=== PATIENT | male | born 1935 | race Two or more races ===

== ENCOUNTER 2016-09-30 01:28 | Inpatient (IN) | payer MEDICARE, MEDICAID ==
[~2016-09-30] VITALS: Ht 175.3 cm; Wt 54.4 kg
[2016-09-30 02:15] VITALS: BP 114/70
[2016-09-30 02:44] VITALS: BP 114/70
[2016-09-30] MEDS ORDERED: ACETAMINOPHEN 325 MG TABLET PO PRN (03:30)
[2016-09-30] MEDS ORDERED: MAG HYDROX/AL HYDROX/SIMETH 30 ML UDC PO PRN (03:30)
[2016-09-30] MEDS ORDERED: LORAZEPAM 0.5 MG TABLET PO PRN (03:30)
[2016-09-30] MEDS ORDERED: MAGNESIUM HYDROXIDE 30 ML UDC PO PRN (03:30)
[2016-09-30] MEDS ORDERED: B CO1CAP6 PO (04:29)
[2016-09-30] MEDS ORDERED: CYAN-3 IJ (04:33)
[2016-09-30] MEDS ORDERED: DOXA4TAB2 PO (04:34)
[2016-09-30] MEDS ORDERED: ERGO500047 PO (04:35)
[2016-09-30] MEDS ORDERED: FINA5TAB4 PO (04:36)
[2016-09-30] MEDS ORDERED: LORA10CA PO (04:37)
[2016-09-30] MEDS ORDERED: MESA0.37 PO (04:38)
[2016-09-30] MEDS ORDERED: MESA10005 RC (04:39)
[2016-09-30] MEDS ORDERED: OXYB10TA4 PO (04:40)
[2016-09-30] MEDS ORDERED: PHEN-704 PO (04:41)
[2016-09-30] MEDS ORDERED: SIME250C PO (04:43)
[2016-09-30 08:00] VITALS: BP 120/60
[2016-09-30] MEDS: ERGOCALCIFEROL (VITAMIN D 2) 50,000 UNIT CAPSULE PO SCH (14:00)
[2016-09-30 16:13] VITALS: BP 100/69
[2016-09-30] MEDS: SIMETHICONE 80 MG TAB.CHEW PO SCH (17:00)
[2016-09-30] MEDS ORDERED: MESALAMINE RC SCH ×2 (18:00)
[2016-09-30] MEDS: CYANOCOBALAMIN 1,000 MCG/ML VIAL IM SCH (18:30)
[2016-09-30 20:00] VITALS: BP 93/57
[2016-09-30] MEDS: OXYBUTYNIN CHLORIDE ER 5 MG TAB PO SCH (21:27)
[2016-09-30] MEDS ORDERED: MIRTAZAPINE 15 MG TABLET PO SCH (22:00)
[2016-10-01 07:59] LABS: BASOPHILS % (AUTO) 0.4 % (0.0-2.0); DIFF TOTAL % 100 %; EOSINOPHILS # (AUTO) 0.3 /CMM (0.0-0.7); EOSINOPHILS % (AUTO) 3.5 % (0.0-6.0); HEMATOCRIT 41 % (39-51); HEMOGLOBIN 13.6 g/dL (13.5-17.5); LYMPHOCYTES # (AUTO) 1.4 /CMM (0.8-4.8); LYMPHOCYTES % (AUTO) 16.7 % (20.0-44.0); MEAN CORPUSCULAR HEMOGLOBIN 31 PG (26.0-33.0); MEAN CORPUSCULAR HGB CONC 33 g/dl (31.0-36.0); MEAN CORPUSCULAR VOLUME 94 fL (80-96); MONOCYTES # (AUTO) 0.8 /CMM (0.1-1.30); MONOCYTES % (AUTO) 8.9 % (2.0-12.0); NEUTROPHILS % (AUTO) 70.5 % (43.0-81.0); PLATELET COUNT (AUTO) 259 /CMM (150-450); RED BLOOD CELL COUNT(AUTO) 4.37 MIL/uL (4.5-6.0); WHITE BLOOD COUNT (AUTO) 8.5 K/uL (4.3-11.0)
[2016-10-01 08:00] VITALS: BP 100/65
[2016-10-01 08:22] LABS: ALBUMIN 2.6 g/dL (3.4-5.0); BILIRUBIN,TOTAL 1.1 mg/dL (0.2-1.0); CALCIUM, SERUM 8.5 mg/dL (8.5-10.1); CREATININE 0.9 mg/dL (0.6-1.3); PHOSPHORUS 3.2 mg/dL (2.5-4.9); TOTAL PROTEIN, SERUM 5.5 g/dL (6.4-8.2)
[2016-10-01] MEDS: FINASTERIDE (5 MG) 5 MG TABLET PO SCH (08:53)
[2016-10-01] MEDS: DOXAZOSIN MESYLATE (4 MG) 4 MG TABLET PO SCH (08:54)
[2016-10-01] MEDS: VIT B CMPLX 3/FA/VIT C/BIOTIN 1 TAB TABLET PO SCH (08:54)
[2016-10-01] MEDS: LORATADINE 10 MG TABLET PO SCH (08:54)
[2016-10-01] MEDS: SIMETHICONE 80 MG TAB.CHEW PO SCH ×2 (08:55→17:58)
[2016-10-01] MEDS: MESALAMINE 400 MG CAP PO SCH ×2 (09:00→17:58)
[2016-10-01 11:18] LABS: IRON, SERUM 54 ug/dl (50-175); PERCENT SATURATION 30 % (14-33); TOTAL IRON BINDING CAPACITY 183 ug/dl (250-450)
[2016-10-01 12:41] LABS: BAND % (MANUAL) 2 % (0.0-5.0); EOSINOPHILS % (MANUAL) 1 % (0-4); LYMPHOCYTES % (MANUAL) 29 % (16-48)
[2016-10-01 16:00] VITALS: BP 100/61
[2016-10-01 20:01] VITALS: BP 114/65
[2016-10-01] MEDS: OXYBUTYNIN CHLORIDE ER 5 MG TAB PO SCH (21:41)
[2016-10-01] MEDS: TEMAZEPAM 7.5 MG CAPSULE PO PRN (21:42)
[2016-10-01] MEDS: MIRTAZAPINE 15 MG TABLET PO SCH (21:42)
[2016-10-02 08:00] VITALS: BP 105/59
[2016-10-02] MEDS: MESALAMINE 400 MG CAP PO SCH ×3 (09:00→18:38)
[2016-10-02] MEDS: DOXAZOSIN MESYLATE (4 MG) 4 MG TABLET PO SCH (09:13)
[2016-10-02] MEDS: VIT B CMPLX 3/FA/VIT C/BIOTIN 1 TAB TABLET PO SCH (09:13)
[2016-10-02] MEDS: FINASTERIDE (5 MG) 5 MG TABLET PO SCH (09:14)
[2016-10-02] MEDS: SIMETHICONE 80 MG TAB.CHEW PO SCH ×2 (09:14→18:38)
[2016-10-02] MEDS: LORATADINE 10 MG TABLET PO SCH (09:14)
[2016-10-02 16:00] VITALS: BP 114/53
[2016-10-02] MEDS: TAMSULOSIN 0.4 MG CAP.SR.24H PO SCH (18:38)
[2016-10-02 19:54] VITALS: BP 107/50
[2016-10-02] MEDS: MIRTAZAPINE 15 MG TABLET PO SCH (21:18)
[2016-10-02] MEDS: OXYBUTYNIN CHLORIDE ER 5 MG TAB PO SCH (21:18)
[2016-10-03 08:48] VITALS: BP 100/59
[2016-10-03] MEDS: TAMSULOSIN 0.4 MG CAP.SR.24H PO SCH (09:00)
[2016-10-03] MEDS: MESALAMINE 400 MG CAP PO SCH ×2 (09:00→17:00)
[2016-10-03] MEDS: SIMETHICONE 80 MG TAB.CHEW PO SCH ×2 (09:00→17:00)
[2016-10-03] MEDS: FINASTERIDE (5 MG) 5 MG TABLET PO SCH (09:00)
[2016-10-03] MEDS: LORATADINE 10 MG TABLET PO SCH (09:00)
[2016-10-03] MEDS: VIT B CMPLX 3/FA/VIT C/BIOTIN 1 TAB TABLET PO SCH (09:00)
[2016-10-03 16:00] VITALS: BP 100/58
[2016-10-03] MEDS: SERTRALINE HCL 25 MG TABLET PO SCH (16:31)
[2016-10-03 20:00] VITALS: BP 107/63
[2016-10-03] MEDS: OXYBUTYNIN CHLORIDE ER 5 MG TAB PO SCH (21:24)
[2016-10-03] MEDS: MIRTAZAPINE 15 MG TABLET PO SCH (21:25)
[2016-10-03] MEDS: TEMAZEPAM 7.5 MG CAPSULE PO PRN (21:51)
[2016-10-04 08:00] VITALS: BP 113/66
[2016-10-04] MEDS: SIMETHICONE 80 MG TAB.CHEW PO SCH ×2 (08:17→17:09)
[2016-10-04] MEDS: FINASTERIDE (5 MG) 5 MG TABLET PO SCH (08:18)
[2016-10-04] MEDS: MESALAMINE 400 MG CAP PO SCH ×2 (08:19→17:09)
[2016-10-04] MEDS: LORATADINE 10 MG TABLET PO SCH (08:56)
[2016-10-04] MEDS: VIT B CMPLX 3/FA/VIT C/BIOTIN 1 TAB TABLET PO SCH (08:56)
[2016-10-04] MEDS: SERTRALINE HCL 25 MG TABLET PO SCH (08:56)
[2016-10-04] MEDS: TAMSULOSIN 0.4 MG CAP.SR.24H PO SCH (08:56)
[2016-10-04 16:00] VITALS: BP 101/60
[2016-10-04 20:00] VITALS: BP 102/52
[2016-10-04] MEDS: MIRTAZAPINE 15 MG TABLET PO SCH (22:34)
[2016-10-04] MEDS: OXYBUTYNIN CHLORIDE ER 5 MG TAB PO SCH (22:34)
[2016-10-04] MEDS: TEMAZEPAM 7.5 MG CAPSULE PO PRN (22:34)
[2016-10-04] MEDS: OLANZAPINE 2.5 MG TABLET PO SCH (22:34)
[2016-10-05 07:44] VITALS: BP 108/63
[2016-10-05] MEDS: VIT B CMPLX 3/FA/VIT C/BIOTIN 1 TAB TABLET PO SCH (09:02)
[2016-10-05] MEDS: TAMSULOSIN 0.4 MG CAP.SR.24H PO SCH (09:03)
[2016-10-05] MEDS: SIMETHICONE 80 MG TAB.CHEW PO SCH ×2 (09:03→17:53)
[2016-10-05] MEDS: MESALAMINE 400 MG CAP PO SCH ×2 (09:03→17:49)
[2016-10-05] MEDS: FINASTERIDE (5 MG) 5 MG TABLET PO SCH (09:04)
[2016-10-05] MEDS: LORATADINE 10 MG TABLET PO SCH (09:04)
[2016-10-05 16:51] VITALS: BP 109/57
[2016-10-05 20:50] VITALS: BP 110/69
[2016-10-05] MEDS: OXYBUTYNIN CHLORIDE ER 5 MG TAB PO SCH (22:15)
[2016-10-05] MEDS: MIRTAZAPINE 15 MG TABLET PO SCH (22:15)
[2016-10-05] MEDS: OLANZAPINE 2.5 MG TABLET PO SCH (22:16)
[2016-10-06] MEDS: SIMETHICONE 80 MG TAB.CHEW PO SCH ×2 (08:51→17:42)
[2016-10-06] MEDS: LORATADINE 10 MG TABLET PO SCH (08:52)
[2016-10-06] MEDS: FINASTERIDE (5 MG) 5 MG TABLET PO SCH (08:52)
[2016-10-06] MEDS: MESALAMINE 400 MG CAP PO SCH ×2 (08:52→17:42)
[2016-10-06] MEDS: VIT B CMPLX 3/FA/VIT C/BIOTIN 1 TAB TABLET PO SCH (08:52)
[2016-10-06] MEDS: TAMSULOSIN 0.4 MG CAP.SR.24H PO SCH (08:52)
[2016-10-06 10:06] VITALS: BP 118/73
[2016-10-06 10:12] VITALS: BP 118/73
[2016-10-06] MEDS ORDERED: Z GUARD REMEDY 2 OZ OINT TP PRN (11:30)
[2016-10-06 15:42] VITALS: BP 99/56
[2016-10-06 20:07] VITALS: BP 105/57
[2016-10-06] MEDS: OXYBUTYNIN CHLORIDE ER 5 MG TAB PO SCH (21:48)
[2016-10-06] MEDS: MIRTAZAPINE 15 MG TABLET PO SCH (21:48)
[2016-10-06] MEDS: OLANZAPINE 2.5 MG TABLET PO SCH (21:49)
[2016-10-07 08:00] VITALS: BP 106/60
[2016-10-07] MEDS: FINASTERIDE (5 MG) 5 MG TABLET PO SCH (08:33)
[2016-10-07] MEDS: SIMETHICONE 80 MG TAB.CHEW PO SCH ×2 (08:33→16:18)
[2016-10-07] MEDS: VIT B CMPLX 3/FA/VIT C/BIOTIN 1 TAB TABLET PO SCH (08:33)
[2016-10-07] MEDS: MESALAMINE 400 MG CAP PO SCH ×2 (08:33→16:18)
[2016-10-07] MEDS: TAMSULOSIN 0.4 MG CAP.SR.24H PO SCH (08:33)
[2016-10-07] MEDS: LORATADINE 10 MG TABLET PO SCH (08:34)
[2016-10-07] MEDS ORDERED: Z GUARD REMEDY 2 OZ OINT TP PRN (11:00)
[2016-10-07 12:46] LABS: BASOPHILS # (AUTO) 0.1 /CMM (0.0-0.2); BASOPHILS % (AUTO) 0.5 % (0.0-2.0); DIFF TOTAL % 100 %; EOSINOPHILS # (AUTO) 0.1 /CMM (0.0-0.7); EOSINOPHILS % (AUTO) 0.8 % (0.0-6.0); HEMATOCRIT 44 % (39-51); HEMOGLOBIN 14.3 g/dL (13.5-17.5); LYMPHOCYTES # (AUTO) 1.5 /CMM (0.8-4.8); MEAN CORPUSCULAR HEMOGLOBIN 31 PG (26.0-33.0); MEAN CORPUSCULAR HGB CONC 33 g/dl (31.0-36.0); MEAN CORPUSCULAR VOLUME 93 fL (80-96); MONOCYTES # (AUTO) 0.7 /CMM (0.1-1.30); MONOCYTES % (AUTO) 6.7 % (2.0-12.0); NEUTROPHILS # (AUTO) 8.5 /CMM (1.8-8.9); PLATELET COUNT (AUTO) 348 /CMM (150-450); RED BLOOD CELL COUNT(AUTO) 4.66 MIL/uL (4.5-6.0); WHITE BLOOD COUNT (AUTO) 10.9 K/uL (4.3-11.0)
[2016-10-07] MEDS: ERGOCALCIFEROL (VITAMIN D 2) 50,000 UNIT CAPSULE PO SCH (13:13)
[2016-10-07] MEDS: CYANOCOBALAMIN 1,000 MCG/ML VIAL IM SCH (14:23)
[2016-10-07 16:00] VITALS: BP 100/70
[2016-10-07] MEDS: Z GUARD REMEDY 2 OZ OINT TP SCH (17:16)
[2016-10-07] MEDS: MIRTAZAPINE 15 MG TABLET PO SCH (22:00)
[2016-10-07] MEDS: OLANZAPINE 2.5 MG TABLET PO SCH (22:00)
[2016-10-07] MEDS: OXYBUTYNIN CHLORIDE ER 5 MG TAB PO SCH (22:05)
[2016-10-08 03:52] VITALS: BP 113/49
[2016-10-08 05:09] VITALS: BP 113/49
[2016-10-08] MEDS: Z GUARD REMEDY 2 OZ OINT TP SCH ×2 (06:31→18:45)
[2016-10-08 07:30] LABS: BASOPHILS % (AUTO) 0.2 % (0.0-2.0); DIFF TOTAL % 100 %; EOSINOPHILS # (AUTO) 0.2 /CMM (0.0-0.7); EOSINOPHILS % (AUTO) 1.6 % (0.0-6.0); HEMATOCRIT 44 % (39-51); HEMOGLOBIN 14.5 g/dL (13.5-17.5); LYMPHOCYTES # (AUTO) 1.8 /CMM (0.8-4.8); MEAN CORPUSCULAR HEMOGLOBIN 31 PG (26.0-33.0); MEAN CORPUSCULAR HGB CONC 33 g/dl (31.0-36.0); MEAN CORPUSCULAR VOLUME 93 fL (80-96); MONOCYTES % (AUTO) 7.8 % (2.0-12.0); NEUTROPHILS # (AUTO) 9.6 /CMM (1.8-8.9); NEUTROPHILS % (AUTO) 76.4 % (43.0-81.0); PLATELET COUNT (AUTO) 341 /CMM (150-450); RED BLOOD CELL COUNT(AUTO) 4.72 MIL/uL (4.5-6.0); WHITE BLOOD COUNT (AUTO) 12.6 K/uL (4.3-11.0)
[2016-10-08 08:00] VITALS: BP 105/63
[2016-10-08] MEDS: VIT B CMPLX 3/FA/VIT C/BIOTIN 1 TAB TABLET PO SCH (09:00)
[2016-10-08] MEDS: LORATADINE 10 MG TABLET PO SCH (09:00)
[2016-10-08] MEDS: SIMETHICONE 80 MG TAB.CHEW PO SCH ×2 (09:00→17:01)
[2016-10-08] MEDS: MESALAMINE 400 MG CAP PO SCH ×2 (09:00→17:00)
[2016-10-08] MEDS: TAMSULOSIN 0.4 MG CAP.SR.24H PO SCH (09:00)
[2016-10-08] MEDS: FINASTERIDE (5 MG) 5 MG TABLET PO SCH (09:00)
[2016-10-08] MEDS: BENZTROPINE MESYLATE (1 MG) 1 MG TABLET PO SCH ×2 (12:18→17:01)
[2016-10-08] MEDS: HALOPERIDOL 1 MG TABLET PO SCH ×2 (13:17→17:01)
[2016-10-08 16:00] VITALS: BP 103/61
[2016-10-08 20:11] VITALS: BP 100/61
[2016-10-08] MEDS: OXYBUTYNIN CHLORIDE ER 5 MG TAB PO SCH (21:58)
[2016-10-08] MEDS: MIRTAZAPINE 15 MG TABLET PO SCH (21:58)
[2016-10-08] MEDS: OLANZAPINE 2.5 MG TABLET PO SCH (21:58)
[2016-10-09] MEDS: Z GUARD REMEDY 2 OZ OINT TP SCH ×2 (06:02→18:30)
[2016-10-09 07:06] LABS: BASOPHILS % (AUTO) 0.1 % (0.0-2.0); DIFF TOTAL % 100 %; EOSINOPHILS # (AUTO) 0.1 /CMM (0.0-0.7); EOSINOPHILS % (AUTO) 1.2 % (0.0-6.0); HEMATOCRIT 41 % (39-51); HEMOGLOBIN 13.7 g/dL (13.5-17.5); LYMPHOCYTES # (AUTO) 1.5 /CMM (0.8-4.8); LYMPHOCYTES % (AUTO) 12.7 % (20.0-44.0); MEAN CORPUSCULAR HEMOGLOBIN 31 PG (26.0-33.0); MEAN CORPUSCULAR HGB CONC 34 g/dl (31.0-36.0); MEAN CORPUSCULAR VOLUME 93 fL (80-96); MONOCYTES # (AUTO) 0.5 /CMM (0.1-1.30); MONOCYTES % (AUTO) 4.2 % (2.0-12.0); NEUTROPHILS # (AUTO) 9.6 /CMM (1.8-8.9); NEUTROPHILS % (AUTO) 81.8 % (43.0-81.0); PLATELET COUNT (AUTO) 323 /CMM (150-450); RED BLOOD CELL COUNT(AUTO) 4.41 MIL/uL (4.5-6.0); WHITE BLOOD COUNT (AUTO) 11.8 K/uL (4.3-11.0)
[2016-10-09 07:32] LABS: CALCIUM, SERUM 8.3 mg/dL (8.5-10.1); CREATININE 1.1 mg/dL (0.6-1.3); POTASSIUM 4.6 mmol/L (3.5-5.1)
[2016-10-09 08:26] VITALS: BP 103/54
[2016-10-09] MEDS: SIMETHICONE 80 MG TAB.CHEW PO SCH ×2 (10:13→17:00)
[2016-10-09] MEDS: HALOPERIDOL 1 MG TABLET PO SCH ×2 (10:13→17:00)
[2016-10-09] MEDS: TAMSULOSIN 0.4 MG CAP.SR.24H PO SCH (10:14)
[2016-10-09] MEDS: MESALAMINE 400 MG CAP PO SCH ×2 (10:14→17:00)
[2016-10-09] MEDS: BENZTROPINE MESYLATE (1 MG) 1 MG TABLET PO SCH ×2 (10:14→17:00)
[2016-10-09] MEDS: LORATADINE 10 MG TABLET PO SCH (10:15)
[2016-10-09] MEDS: VIT B CMPLX 3/FA/VIT C/BIOTIN 1 TAB TABLET PO SCH (10:15)
[2016-10-09] MEDS: FINASTERIDE (5 MG) 5 MG TABLET PO SCH (10:15)
[2016-10-09 15:45] VITALS: BP 99/58
[2016-10-09 20:00] VITALS: BP 95/57
[2016-10-09 20:35] VITALS: BP 95/57
[2016-10-09] MEDS: OXYBUTYNIN CHLORIDE ER 5 MG TAB PO SCH (21:30)
[2016-10-09] MEDS: OLANZAPINE 2.5 MG TABLET PO SCH (21:31)
[2016-10-09] MEDS ORDERED: MIRTAZAPINE 15 MG TABLET PO SCH (22:00)
[2016-10-10] MEDS: Z GUARD REMEDY 2 OZ OINT TP SCH (06:01)
[2016-10-10 08:00] VITALS: BP 100/58
[2016-10-10] MEDS: VIT B CMPLX 3/FA/VIT C/BIOTIN 1 TAB TABLET PO SCH (08:24)
[2016-10-10] MEDS: MESALAMINE 400 MG CAP PO SCH (08:25)
[2016-10-10] MEDS: BENZTROPINE MESYLATE (1 MG) 1 MG TABLET PO SCH (08:25)
[2016-10-10] MEDS: TAMSULOSIN 0.4 MG CAP.SR.24H PO SCH (08:25)
[2016-10-10] MEDS: SIMETHICONE 80 MG TAB.CHEW PO SCH (08:25)
[2016-10-10] MEDS: FINASTERIDE (5 MG) 5 MG TABLET PO SCH (08:27)
[2016-10-10] MEDS: LORATADINE 10 MG TABLET PO SCH (08:27)
== END 2016-10-10 13:20 | DRG 885 ==
LOC: GPS 01:52
PROVIDERS: ADMIT Psychiatry & Neurology Psychosomatic Medicine
DX: F33.2 Major depressive disorder, recurrent severe without psychotic features (principal); K51.911 Ulcerative colitis, unspecified with rectal bleeding; I10 Essential (primary) hypertension; N40.0 Benign prostatic hyperplasia without lower urinary tract symptoms; Z73.6 Limitation of activities due to disability; Z91.5 Personal history of self-harm; F29 Unspecified psychosis not due to a substance or known physiological condition
CPT/HCPCS: 36415; 80048-TC; 80053-TC; 80061-TC; 82272-TC; 83540-TC; 83735-TC; 84100-TC; 85025-TC; 87081-TC; 92611-TC; 97001-TC; J3420